=== PATIENT | male | born 1985 | race Caucasian/White ===

== ENCOUNTER 2023-06-09 09:20 | Emergency (ER) | payer OTHER ==
[2023-06-09 09:45] VITALS: O2SAT 100
--- NOTE | 2023-06-09 11:15 | ED Physician Documentation ---
PD HPI BACK PAIN - Stated complaint Stated Complaint: BACK PX - Chief complaint Chief Complaint: Back Pain - Additional information Additional information: 37-year-old male with no pertinent past medical history presents emergency department for upper back pain. Patient says that he is recently moved here so he is doing a lot of heavy lifting moving a lot of boxes around and a lot of yard work. Patient says he started to notice a twinge of pain last night in his mid upper back and it increased in severity to the point where patient is having a hard time sleeping. He has had no injury no trauma to the upper back no history of IV drug use no history of back surgeries no recent fevers or chills he denies any urinary or stool incontinence PD PAST MEDICAL HISTORY - Past Medical History Past Medical History: Yes Respiratory: Sleep apnea, CPAP use Musculoskeletal: Chronic back pain - Past Surgical History Past Surgical History: Yes General: Appendectomy Ortho: Other - Present Medications Home Medications: Ambulatory Orders Medication Instructions Recorded Confirmed Cyclobenzaprine [Flexeril] 10 mg PO TID PRN 6 Days #20 tablet 06/09/23 - Allergies Allergies/Adverse Reactions: Allergies Allergy/AdvReac Type Severity Reaction Status Date / Time No Known Drug Allergies Allergy Verified 06/09/23 09:41 - Social History Does the pt smoke?: No Smoking Status: Never smoker Does the pt drink ETOH?: Yes Does the pt have substance abuse?: No - Immunizations Immunizations are current?: Yes - POLST Patient has POLST: No PD ED PE NORMAL - Vitals Vital signs reviewed: Yes - General General: Alert and oriented X 3, No acute distress, Well developed/nourished - HEENT HEENT: Atraumatic, PERRL - Respiratory Respiratory: No respiratory distress, Clear bilaterally - Back Back: No CVA TTP, No spinal TTP - Psych Psych: Normal mood, Normal affect - Free text exam Free text exam: Neck and back are without deformity, external skin changes, or signs of trauma. Curvature of the cervical, thoracic, and lumbar spine are within normal limits. Bony features of the shoulders and hips are of equal height bilaterally. Posture is upright, gait is smooth, steady, and within normal limits. No tenderness noted on palpation of the spinous processes. Spinous processes are midline. Cervical, thoracic, and lumbar paraspinal muscles are not tender and are without spasm. No discomfort is noted with flexion, extension, and [id number] rotation of the cervical spine, full range of motion is noted. Full range of motion including flexion, extension, and [id number] rotation of the thoracic and lumbar spine are noted and without discomfort. Straight leg raise test is negative bilaterally. Sensation to the upper and lower extremities is normal bilaterally. No clonus is noted. [employer] strength is normal bilaterally. Dorsi/plantar flexion is normal bilaterally. Results - Vitals Vitals: Vital Signs - 24 hr 06/09/23 06/09/23 09:38 11:52 Temperature 36.2 C L Heart Rate 76 82 Respiratory 20 20 Rate Blood Pressure 142/88 H 147/90 H O2 Saturation 100 100 Oxygen O2 Source Room air PD Medical Decision Making - ED course ED course: This patient presents with back pain most consistent with musculoskeletal spasm/strain. No back pain red flags on history or physical. Presentation not consistent with malignancy (lack of history of malignancy, lack of B symptoms), fracture (no trauma, no bony tenderness to palpation), transverse myelitis, (no sensory loss, no distal weakness), thoracic aortic dissection (equal peripheral pulses, no tachycardia, story does not fit), pneumonia (afebrile, no infectious symptoms), pulmonary embolism (Wells low risk), osteomyelitis or epidural abscess (no IVDU, vertebral tenderness). Given the clinical picture, no indication for imaging at this time. He was given a Toradol shot here in ER and muscle relaxers sent to pts preferred pharmacy and told to follow up with PCP Departure - Departure Disposition: 01 Home, Self Care Clinical Impression: Upper back pain Upper back strain Qualifiers: Encounter type: initial encounter Qualified Code(s): S29.012A - Strain of muscle and tendon of back wall of thorax, initial encounter Instructions: Exercise Reach and Hold, Stretch Shoulder Upper Back, ED Spasm Back No Trauma Prescriptions: Cyclobenzaprine [Flexeril] 10 mg PO TID PRN 6 Days #20 tablet PRN Reason: Spasms Comments: Thank you for trusting us with your care. I believe that the pain you are experiencing is from muscle spasms to your upper back region. We have given you a Toradol shot here in the emergency department but given the amount of NSAIDs that you have used I do not want you to use any additional ibuprofen or naproxen for the next 24 hours. In the future avoid taking ibuprofen and naproxen together. You can take 1000 mg of Tylenol every 8 hours do not exceed 4 g in a 24-hour period please help with your primary care provider for further evaluation of your back pain for possible physical therapy referral. Alternate between 20 minutes ice 20 minutes heat to your upper back with some gentle stretching exercises. I have sent a prescription of muscle relaxers to the [facility] pharmacy here for the hospital do not drive or operate heavy machinery while taking this medication until you see how it affects you. Discharge Date/Time: 06/09/23 11:52
[2023-06-09] MEDS: KETOROLAC 30 MG/ML VIAL IM STA (11:19)
[2023-06-09 11:54] VITALS: BP 147/90
== END 2023-06-09 11:52 | disposition home or self-care (01) ==
LOC: ED 09:20
DX: S29.012A Strain of muscle and tendon of back wall of thorax, initial encounter (principal); X50.0XXA Overexertion from strenuous movement or load, initial encounter
CPT/HCPCS: 96372; 99283

== ENCOUNTER 2023-06-09 15:36 | Emergency (ER) | payer OTHER ==
[2023-06-09 15:44] VITALS: BP 123/76; O2SAT 97
== END 2023-06-09 18:29 | disposition left against medical advice (07) ==
LOC: ED 15:36
DX: Z53.21 Procedure and treatment not carried out due to patient leaving prior to being seen by health care provider (principal)

== ENCOUNTER 2023-08-23 18:02 | Emergency (ER) | payer OTHER ==
[2023-08-23 18:26] VITALS: BP 147/92; O2SAT 98
--- NOTE | 2023-08-23 18:38 | XRAY Report ---
PROCEDURE: Chest 2V INDICATIONS: Cough TECHNIQUE: 2 views of the chest were acquired. COMPARISON: None. FINDINGS: Surgical changes and devices: None. Lungs and pleura: An incomplete inspiratory result is noted, with low lung volumes and crowding of t he vascular markings. No focal infiltrates are seen. No large pneumothorax or large pleural effusion can be seen. Mediastinum: Mediastinal contours appear normal. Heart size is normal. Bones and chest wall: No suspicious bony lesions. Overlying soft tissues appear unremarkable. IMPRESSION: Low lung volumes, without an acute cardiopulmonary abnormality seen. Reviewed by: Heri Ring MD on 08/23/2023 5:37 PM AKVALENTIN Approved by: eHri Ring MD on 08/23/2023 5:37 PM ALVALENTIN Station ID: [id number]
--- NOTE | 2023-08-23 20:13 | ED Physician Documentation ---
PD HPI URI - Stated complaint Stated Complaint: COUGH - Chief complaint Chief Complaint: Resp - History obtained from History obtained from: Patient - History of Present Illness Timing duration: Days (3) Timing details: Gradual onset Pain level max: 0 Pain level now: 0 Associated symptoms: Nasal congestion, Rhinorrhea, Dry cough. No: Fever, Chills Improves by: Rest - Additional information Additional information: Patient is a 37-year-old male who has had a cough and congestion for the past 3 days. 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 He has not had any fevers. No respiratory difficulties. No nausea or vomiting. No chest pain. Nothing makes it better or worse. Review of Systems Constitutional: denies: Fever, Chills Nose: reports: Rhinorrhea / runny nose, Congestion Cardiac: denies: Chest pain / pressure Respiratory: reports: Cough. denies: Dyspnea, Wheezing GI: denies: Abdominal Pain, Nausea, Vomiting, Diarrhea Skin: denies: Rash Musculoskeletal: denies: Neck pain, Back pain Neurologic: denies: Headache PD PAST MEDICAL HISTORY - Past Medical History Past Medical History: Yes Respiratory: Sleep apnea, CPAP use Musculoskeletal: Chronic back pain - Past Surgical History Past Surgical History: Yes General: Appendectomy Ortho: Other - Present Medications Home Medications: Ambulatory Orders Medication Instructions Recorded Confirmed Cyclobenzaprine [Flexeril] 10 mg PO TID PRN 6 Days #20 tablet 06/09/23 06/09/23 - Allergies Allergies/Adverse Reactions: Allergies Allergy/AdvReac Type Severity Reaction Status Date / Time No Known Drug Allergies Allergy Verified 08/23/23 19:14 - Social History Does the pt smoke?: No Smoking Status: Never smoker Does the pt drink ETOH?: Yes Does the pt have substance abuse?: No - Immunizations Immunizations are current?: Yes - POLST Patient has POLST: No PD ED PE NORMAL - Vitals Vital signs reviewed: Yes - General General: Alert and oriented X 3, No acute distress - HEENT HEENT: PERRL, Ears normal, Moist mucous membranes, Pharynx benign - Neck Neck: Supple, no meningeal sign - Cardiac Cardiac: RRR - Respiratory Respiratory: No respiratory distress, Clear bilaterally - Abdomen Abdomen: Soft, Non tender, Non distended - Derm Derm: Warm and dry - Extremities Extremities: No edema - Neuro Neuro: Alert and oriented X 3 - Psych Psych: Normal mood, Normal affect Results - Vitals Vitals: Vital Signs - 24 hr 08/23/23 18:16 Temperature 36.5 C Heart Rate 73 Respiratory 16 Rate Blood Pressure 147/92 H O2 Saturation 98 Oxygen O2 Source Room air - Labs Labs: Laboratory Tests 08/23/23 18:21 Nasal Adenovirus (PCR) NOT DETECTED Nasal B. parapertussis DNA (PCR) NOT DETECTED Nasal Coronavir 229E PCR NOT DETECTED Nasal Coronavir HKU1 PCR NOT DETECTED Nasal Coronavir NL63 PCR NOT DETECTED Nasal Coronavir OC43 PCR NOT DETECTED Nasal Enterovir/Rhinovir PCR NOT DETECTED Nasal Influenza B PCR NOT DETECTED Nasal Influenza A PCR NOT DETECTED Nasal Parainfluen 1 PCR NOT DETECTED Nasal Parainfluen 2 PCR NOT DETECTED Nasal Parainfluen 3 PCR NOT DETECTED Nasal Parainfluen 4 PCR NOT DETECTED Nasal RSV (PCR) NOT DETECTED Nasal B.pertussis DNA PCR NOT DETECTED Nasal C.pneumoniae (PCR) NOT DETECTED Agustin Human Metapneumo PCR DETECTED A Nasal M.pneumoniae (PCR) NOT DETECTED Nasal SARS-CoV-2 (PCR) NOT DETECTED PD Medical Decision Making - ED course Complexity details: reviewed results, re-evaluated patient, considered differential, d/w patient ED course: Patient is positive for human metapneumovirus. He is well-appearing, nontoxic. Afebrile. No hypoxia or respiratory distress. He is here requesting a work note for his command at the [employer]. Work note was given. Will continue supportive care at home and [place]. No indication for x-rays or further testing at this time. Patient counseled regarding signs and symptoms for which I believe and urgent re- evaluation would be necessary. Patient with good understanding of and agreement to plan and is comfortable going home at this time This document was made in part using voice recognition software. While efforts are made to proofread this document, sound alike and grammatical errors may occur. Departure - Departure Disposition: 01 Home, Self Care Clinical Impression: Infection due to human metapneumovirus (hMPV) Upper respiratory tract infection Qualifiers: URI type: unspecified URI Qualified Code(s): J06.9 - Acute upper respiratory infection, unspecified Condition: Good Instructions: ED Viral Syndrome Follow-Up: Your,doctor in 1 week [Other] Comments: Drink plenty of fluids and rest. Follow-up with your doctor for further care. Return if you worsen. Your x-ray does not show any acute abnormalities today. Your respiratory PCR should return in a few hours, you can check this on the patient portal. We will call you if there is a positive result. Forms: PCP List, Activity restrictions Discharge Date/Time: 08/23/23 20:18
[2023-08-23 20:16] LABS: B. PARAPERTUSSIS- RESP PCR PAN NOT DETECTED; B. PERTUSSIS- RESP PCR PANEL NOT DETECTED; C. PNEUMONIAE- RESP PCR PANEL NOT DETECTED; CORONAVIRUS 229E-RESP PCR NOT DETECTED; CORONAVIRUS HKU1-RESP PCR NOT DETECTED; CORONAVIRUS NL63-RESP PCR NOT DETECTED; CORONAVIRUS OC43-RESP PCR NOT DETECTED; HUMAN METAPNEUMOVIRUS DETECTED; INFLUENZA A- RESP PCR PANEL NOT DETECTED; INFLUENZA B - RESP PCR PANEL NOT DETECTED; M. PNEUMONIAE- RESP PCR PANEL NOT DETECTED; PARAINFLUENZA VIRUS 1 NOT DETECTED; PARAINFLUENZA VIRUS 2 NOT DETECTED; PARAINFLUENZA VIRUS 3 NOT DETECTED; PARAINFLUENZA VIRUS 4 NOT DETECTED; RHINOVIRUS/ENTEROVIRUS NOT DETECTED; RSV- RESP PCR PANEL NOT DETECTED; SARS-CoV-2 -RESP PCR PANEL NOT DETECTED
== END 2023-08-23 20:18 | disposition home or self-care (01) ==
LOC: ED 18:02
DX: Z02.79 Encounter for issue of other medical certificate (principal); J06.9 Acute upper respiratory infection, unspecified; B97.81 Human metapneumovirus as the cause of diseases classified elsewhere
CPT/HCPCS: 87633; 99283; 99284